=== PATIENT | male | born 1980 | race African-American/Black ===

== ENCOUNTER 2023-07-21 21:48 | Emergency (ER) | payer SELFPAY ==
[2023-07-21 22:15] VITALS: BP 143/95; PULSE 65; RESP 20; TEMP 36.6; O2SAT 96; BMI 31.0
[2023-07-21 22:37] LABS: Hematocrit 43.4 % (42.0-52.0); Hemoglobin 15.8 g/dl (14.0-18.0); Mean Corpuscular HGB Conc 36.4 g/dl (31.0-36.0); Mean Corpuscular Hemoglobin 26.8 pg (27.0-33.0); Mean Corpuscular Volume 73.7 fL (80.0-98.0); Mean Platelet Volume 11.6 fL (9.4-12.4); Platelet Count 226 X10*3/uL (160-400); Red Blood Count 5.89 X10*6/uL (4.60-5.80); Red Cell Distribution Width 14.7 % (11.0-16.0); White Blood Count 8.8 X10*3/uL (4.8-10.8)
[2023-07-21 22:44] LABS: MANUAL DIFF FLAG NO
[2023-07-21 22:45] LABS: Basophils Percent Auto 0.7 % (0-2); Eosinophils Percent Auto 2.5 % (0-4); Imm Gran Pct Auto 0.2 % (0.0-0.4); Lymphocytes Percent Auto 45.3 % (20-40); Monocytes Percent Auto 9.1 % (2-11); Neutrophils Percent Auto 42.2 % (45-73)
[2023-07-21 22:47] LABS: Basophils Absolute Auto 0.1 X10*3/uL (0.0-0.2); Eosinophils Absolute Auto 0.2 X10*3/uL (0.0-0.4); Imm Gran Abs Auto 0.02 X10*3/uL (0.00-0.03); Monocytes Absolute Auto 0.8 X10*3/uL (0.1-1.2); Neutrophils Absolute Auto 3.8 x10*3/uL (2.0-8.3)
[2023-07-21 22:51] LABS: Alanine Aminotransferase 20 U/L (0-40); Albumin Level 4.1 g/dL (3.5-5.0); Alkaline Phosphatase 104 U/L (39-117); Anion Gap 13 (12-20); Aspartate Amino Transferase 17 U/L (5-37); Bilirubin Total 0.4 mg/dL (0.0-1.0); Blood Urea Nitrogen 9 mg/dL (9-16); Calcium 9.3 mg/dL (8.4-10.2); Carbon Dioxide 22 mmol/L (22-29); Chloride 109 mmol/L (96-108); Creatinine Clr Calc Pharmacy 140.8; Estimated Glomerular Filt Rate > 60; Ethanol < 10 mg/dL; Glucose Random 97 mg/dL (60-115); Potassium 3.5 mmol/L (3.3-5.1); Sodium 140 mmol/L (135-145); Total Protein 6.7 g/dL (6.5-8.0)
[2023-07-21 23:13] LABS: Influenza A PCR NEGATIVE (Negative); Influenza B PCR NEGATIVE (Negative); Resp Syncy Virus RNA Qual PCR NEGATIVE (Negative); SARS COV2 PCR INHOUSE NEGATIVE (Negative)
--- NOTE | 2023-07-22 00:09 | ED_ITS ---
HPI - General Adult General Chief complaint: General Medical Stated complaint: ?Toxic ingestion/Headache Time Seen by Provider: 07/21/23 23:52 Source: patient, RN notes reviewed and old records reviewed Mode of arrival: ambulatory Limitations: no limitations History of Present Illness HPI narrative: 42-year-old male presents for evaluation of insomnia. Patient reports he has been unable to sleep since last Monday, 1 week ago He states at that time he was at a [employer] drinking alcohol. He accidentally drank from someone's cup that was not his Patient reports that the cup that he accidentally drank some ?had MDMA in it. Patient states that since then he has been unable to sleep or ?more than a little bit at a time. ? He reports he has been somewhat paranoid Patient states he is just ?looking for something to help me sleep. ? He reports he tried taking Tylenol PM without any relief tonight Patient denies any medical or psychiatric history Related Data Previous Rx's ?Medication ?Instructions ?Recorded lorazepam 2 mg tablet (Ativan) 2 mg PO BEDTIME PRN sleep #7 tabs 07/22/23 Allergies Allergy/AdvReac Type Severity Reaction Status Date / Time No Known Allergies Allergy Verified 07/21/23 22:22 Review of Systems 2 Constitutional: Constitutional: Denies body ache(s), Denies chills and Denies fever(s) Eyes: Eyes: Denies blurry vision ENT: Denies sore throat Cardiovascular: Cardiovascular: Denies chest pain and Denies dyspnea Respiratory: Respiratory: Denies cough and Denies dyspnea Gastrointestinal: Gastrointestinal: Denies abdominal pain, Denies nausea and Denies vomiting Musculoskeletal: Musculoskeletal: Denies back pain Psychiatric: Psychiatric: Reports abnormal sleep pattern, Reports anxiety and Reports paranoia PMFSH Social History Social History Advance Directives: No Advance Directives Information Provided: Yes Physical Exam ED Vital Signs: Vital Signs - 24 hr 07/21/23 22:15 07/22/23 00:38 Temperature 97.8 F 97.8 F Pulse Rate 65 70 Respiratory Rate 20 16 Blood Pressure 143/95 H 136/80 Pulse Oximetry 96 99 Oxygen Delivery Method Room Air Room Air BMI result Body Mass Index 31.0 Const General: healthy appearing, comfortable, no acute distress, alert and awake Nutritional Appearance: well nourished Orientation/consciousness: patient oriented x3 HENMT Head: Yes normocephalic and Yes atraumatic Eyes Eyelids: Yes eyelids normal Conjunctivae: conjunctivae normal Sclerae: sclerae normal Corneas: corneas normal Pupils: Equal, round and reactive pupils present EOM: EOMs intact bilaterally Neck Neck: Yes full ROM Resp Effort & Inspection: normal respiratory effort, able to speak in complete sentences and not labored Cardio Rate: regular rate Rhythm: regular rhythm Skin General skin exam: elasticity normal Neuro General: patient oriented x3 Cranial nerves: Yes CN's II-XII intact bilaterally, Yes Equal, round and reactive pupils present and Yes Bilaterally intact EOM present Cognition (Neuro): normal cognition Extrem Other: Moving all extremities well without any obvious deformities Medications Administered Discontinued Medications Generic Name Dose Route Start Last Admin Trade Name Freq PRN Reason Stop Dose Admin Lorazepam 2 mg 07/22/23 00:09 07/22/23 00:35 Lorazepam 1 Mg Tablet PO 07/22/23 00:10 2 mg ONCE ONE Administration Medical Decision Making Medical Decision Making [facility] Narrative: A 2-year-old male with no significant past medical history presents for evaluation of insomnia. He reports sleeping for only a few minutes at a time for the last week. He is awake, alert oriented, he is answering questions appropriately. His medical workup is reassuring. The patient has no leukocytosis, no anemia. His MCV is low at 73.7. There is no left shift. Chemistries have no significant abnormalities The patient has not provided a tox screen and declines to do so. We will give the patient a dose of Ativan discharge him with same Differential Diagnosis Differential Diagnoses: The differential diagnosis associated with the presentation includes Insomnia Substance abuse Toxic ingestion Radha Lab Data [facility] Lab Attestation statement: I reviewed the patient's lab results. See above 07/21/23 22:27 07/21/23 22:27 Labs: Lab Results 07/21/23 Range/Units 22:27 WBC 8.8 (4.8-10.8) X10*3/uL RBC 5.89 H (4.60-5.80) X10*6/uL Hgb 15.8 (14.0-18.0) g/dl Hct 43.4 (42.0-52.0) % MCV 73.7 L (80.0-98.0) fL MCH 26.8 L (27.0-33.0) pg MCHC 36.4 H (31.0-36.0) g/dl RDW 14.7 (11.0-16.0) % Plt Count 226 (160-400) X10*3/uL MPV 11.6 (9.4-12.4) fL Immature Gran % (Auto) 0.2 (0.0-0.4) % Neut % (Auto) 42.2 L (45-73) % Lymph % (Auto) 45.3 H (20-40) % Fallon % (Auto) 9.1 (2-11) % Eos % (Auto) 2.5 (0-4) % Baso % (Auto) 0.7 (0-2) % Lymph # (Auto) 4.0 (1.2-4.9) X10*3/uL Fallon # (Auto) 0.8 (0.1-1.2) X10*3/uL Eos # (Auto) 0.2 (0.0-0.4) X10*3/uL Baso # (Auto) 0.1 (0.0-0.2) X10*3/uL Abs Immat Gran (auto) 0.02 (0.00-0.03) X10*3/uL Absolute Neuts (auto) 3.8 (2.0-8.3) x10*3/uL Absolute Nucleated RBC 0.000 (0.0-0.012) X10*3/uL Nucleated RBC % (auto) 0.0 (0.0-0.2) /100WBC Neutrophils % (Manual) Cancelled Band Neutrophils % Cancelled Lymphocytes % (Manual) Cancelled Atypical Lymphs % (Man) Cancelled Monocytes % (Manual) Cancelled Eosinophils % (Manual) Cancelled Basophils % (Manual) Cancelled Metamyelocytes % Cancelled Myelocytes % Cancelled Promyelocytes % Cancelled Blast Cells % (Manual) Cancelled Plasma Cell % (Manual) Cancelled Abs Neuts (Manual) Cancelled Lymphocytes # (Manual) Cancelled Atyp Lymphs # (Manual) Cancelled Monocytes # (Manual) Cancelled Eosinophils # (Manual) Cancelled Basophils # (Manual) Cancelled Metamyelocytes # Cancelled Myelocytes # Cancelled Promyelocytes # Cancelled Blast Cells # Cancelled Plasma Cell # (Manual) Cancelled Nucleated RBCs Cancelled Differential Comment Cancelled Hypersegmented Neuts Cancelled Smudge Cells Cancelled Toxic Granulation Cancelled Toxic Vacuolation Cancelled Dohle Bodies Cancelled Ronaldo Rods Cancelled WBC Morphology Comment Cancelled Platelet Estimate Cancelled Large Platelets Cancelled Giant Platelets Cancelled Plt Morphology Comment Cancelled RBC Morphology Cancelled Polychromasia Cancelled Hypochromasia Cancelled Basophilic Stippling Cancelled Microcytosis Cancelled Macrocytosis Cancelled Spherocytes Cancelled Pappenheimer Bodies Cancelled Sickle Cells Cancelled Target Cells Cancelled Tear Drop Cells Cancelled Ovalocytes Cancelled Stomatocytes Cancelled Mcnally-Ensley Bodies Cancelled Joaquin Cells Cancelled Acanthocytes (Spur) Cancelled Rouleaux Cancelled Schistocytes Cancelled Sodium 140 (135-145) mmol/L Potassium 3.5 (3.3-5.1) mmol/L Chloride 109 H (96-108) mmol/L Carbon Dioxide 22 (22-29) mmol/L Anion Gap 13 (12-20) BUN 9 (9-16) mg/dL Creatinine 0.77 (0.5-1.4) mg/dL Estim Creat Clear Calc 140.8 Estimated GFR > 60 Random Glucose 97 (60-115) mg/dL Calcium 9.3 (8.4-10.2) mg/dL Total Bilirubin 0.4 (0.0-1.0) mg/dL AST 17 (5-37) U/L ALT 20 (0-40) U/L Alkaline Phosphatase 104 (39-117) U/L Total Protein 6.7 (6.5-8.0) g/dL Albumin 4.1 (3.5-5.0) g/dL Ethyl Alcohol < 10 mg/dL Influenza Type A (PCR) NEGATIVE (Negative) Influenza Type B (PCR) NEGATIVE (Negative) RSV RNA Qual (PCR) NEGATIVE (Negative) SARS-CoV-2 RNA (RT-PCR) NEGATIVE (Negative) Discharge Plan Discharge Clinical Impression: Insomnia Patient Disposition: Home, Self-Care Instructions: Insomnia (ED) Additional Instructions: You were given a dose of lorazepam 2 mg tonight. You may use this to sleep for the next 2 nights, but I do not recommend using this prior to sleep permanently It can be habit-forming if you use it for more than a few days and around Prescriptions: New lorazepam [Ativan] 2 mg tablet 2 mg PO BEDTIME PRN (Reason: sleep) Qty: 7 0RF Interventions: ED Discharge Assessment Last Done: 07/22/23 00:38 Discharge Date/Time: 07/22/23 00:39 Print Language: Malawian
[2023-07-22] MEDS: LORazepam 1 MG TABLET 2 MG PO (00:35)
[2023-07-22 00:38] VITALS: BP 136/80; PULSE 70; RESP 16; TEMP 36.6; O2SAT 99
== END 2023-07-22 00:39 | disposition home or self-care (01) ==
PROVIDERS: Emergency Provider Student in an Organized Health Care Education/Training Program
DX: G47.00 Insomnia, unspecified (principal); R51.9 Headache, unspecified; Z79.899 Other long term (current) drug therapy; Z03.818 Encounter for observation for suspected exposure to other biological agents ruled out; Z51.81 Encounter for therapeutic drug level monitoring
CPT/HCPCS: 0241U; 80053; 80307; 85025; 99282; 99283